=== PATIENT | male | born 1960 | race Caucasian/White ===

== ENCOUNTER 2019-08-21 13:40 | Emergency (ER) | payer MEDICAID, OTHER, SELFPAY ==
[~2019-08-21] VITALS: Ht 170.2 cm; Wt 75.0 kg
--- NOTE | 2019-08-21 14:08 | NUR ---
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 PT NOT IN LOBBY AT THIS TIME.
--- NOTE | 2019-08-21 14:31 | NUR ---
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
[2019-08-21] MEDS ORDERED: METHOCARBAMOL 750 MG TABLET ONE (14:55)
[2019-08-21] MEDS ORDERED: KETOROLAC 30 MG/1 ML ONE (14:55)
--- NOTE | 2019-08-21 15:01 | NUR ---
PT WITH C/O BACK AND RIB PAIN FOR APPROX ONE WEEK WHILE LIFTING SOMETHING HEAVY AT WORK, PT STATES PAIN HAS PROGRESSIVELY GOTTON WORSE PT MEDICATED PER MAR, TO IMAGING AT THIS TIME
[2019-08-21 15:13] LABS: BASOPHILS # (AUTO) 0.02 x10^3/uL (0-0.1); BASOPHILS % (AUTO) 0 % (0-1); EOSINOPHILS % (AUTO) 3 % (1-7); LYMPHOCYTES # (AUTO) 1.59 x10^3/uL (1-3.4); LYMPHOCYTES % (AUTO) 20 % (22-44); MD NO; MEAN CORPUSCULAR HEMOGLOBIN 31.1 pg (27.5-34.5); MEAN CORPUSCULAR HGB CONC 33.9 g/dL (33.2-36.2); MEAN CORPUSCULAR VOLUME 91.8 fL (81-97); MEAN PLATELET VOLUME 10.1 fL (7.4-10.4); MONOCYTES % (AUTO) 9 % (2-9); NEUTROPHILS # (AUTO) 5.54 x10^3/uL (1.8-6.8); NEUTROPHILS % (AUTO) 69 % (42-75); PLATELET COUNT 210 x10^3/uL (130-400); RED BLOOD COUNT 5.22 x10^6/uL (4.38-5.82); RED CELL DISTRIBUTION WIDTH 12.8 % (9.4-14.8)
[2019-08-21 15:19] LABS: ALBUMIN 3.6 g/dL (3.4-5.0); ANION GAP 5 mmol/L (5-15); CALCIUM 8.6 mg/dL (8.5-10.1); CHLORIDE 107 mmol/L (98-107)
[2019-08-21 15:23] LABS: TROPONIN I < 0.015 ng/mL (0.000-0.045)
[2019-08-21] MEDS ORDERED: METHOCARBAMOL 750 MG TABLET PO ONE (15:30)
[2019-08-21] MEDS ORDERED: KETOROLAC 30 MG/1 ML IM ONE (15:30)
[2019-08-21 15:37] VITALS: BP 162/115
== END 2019-08-21 16:53 | disposition home or self-care (01) ==
LOC: ED 16:00
DX: S39.012A Strain of muscle, fascia and tendon of lower back, initial encounter (principal); S29.012A Strain of muscle and tendon of back wall of thorax, initial encounter; R07.89 Other chest pain; I10 Essential (primary) hypertension; X58.XXXA Exposure to other specified factors, initial encounter; Y93.89 Activity, other specified; Y92.89 Other specified places as the place of occurrence of the external cause; Y99.8 Other external cause status
CPT/HCPCS: 36415; 71045; 71046; 72080; 80048; 82040; 84484; 85025; 93005; 96372; 99285; J1885